=== PATIENT | female | born 1975 ===

== ENCOUNTER 2019-11-01 12:35 | Inpatient (IN) | payer SELFPAY ==
[2019-11-01] MEDS ORDERED: Fentanyl 100 MCG/2 ML VIAL ONE (12:44)
[2019-11-01 12:59] LABS: #Basophils 0.1 thou/uL (0.0-0.2); #Eosinphils 0.1 thou/uL (0.0-0.7); #Lymphocytes 1.2 thou/uL (1.20-3.40); #Monocytes 0.3 thou/uL (0.11-0.59); #Neutrophils 6.2 thou/uL (1.40-6.50); %Basophils 0.7 % (0.0-1.0); %Eosinophils 1.4 % (0.0-10.0); %Lymphocytes 15.5 % (21.0-51.0); %Monocytes 3.7 % (0.0-10.0); %Neutrophils 78.7 % (42.0-75.0); Mean Corpuscular HGB CONC 32.6 g/dL (32.0-36.0); Mean Corpuscular Hemoglobin 31.4 pg (27.0-31.0); Mean Corpuscular Volume 96.2 fL (78.0-98.0); Mean Platelet Volume 7.1 fL (7.4-10.4); Platelet Count 225 thou/uL (130-400); RBC Distribution Width 11.3 % (11.5-14.5); Red Blood Cell (RBC) Count 4.15 mill/uL (4.20-5.40); White Blood Cell (WBC) Count 7.9 thou/uL (4.8-10.8)
[2019-11-01] MEDS ORDERED: Fentanyl 20 mcg/ml (100 ml CADD) IV PRN (12:59)
[2019-11-01] MEDS ORDERED: Magnesium 2 GM/50 ML BAG (IN WATER) ONE (13:01)
[2019-11-01 13:02] LABS: Actual Bicarbonate (HCO3a) 24.7 mEq/L (22-28); Analyzer IN Cardio ER; Base Excess (BEa) -0.1 mEq/L (-2.0 to +3.0); CO2 Tension 41.1 mmHg (35.0-45.0); Calcium, Ionized (arterial) 1.15 mmol/L (1.12-1.30); Carboxyhemoglobin (COHb) 0.4 gm% (0.0-3.0)
[2019-11-01 13:05] LABS: ALV-art Gradient -32.375 (0-20); Puncture Site RRA
[2019-11-01 13:05] LABS: PTT 24.9 sec (22.9-36.1); Prothrombin Time 13.2 sec (12.0-14.7)
--- NOTE | 2019-11-01 13:10 | RAD ---
EXAM: Single view of the chest HISTORY: Slumped over and unarousable. CPR performed. COMPARISON: None FINDINGS: Single view of the chest shows a normal sized cardiomediastinal silhouette. An endotrachea l tube is seen with its tip between the clavicles. An NG tube is seen with its tip in the stomach. There is no evidence of consolidation, mass, or pleural effusion. The bones are unremarkable IMPRESSION: No evidence of acute cardiopulmonary disease
[2019-11-01] MEDS ORDERED: Magnesium 2 GM/50 ML 2 GM in Premix Bag 1 BAG IVPB SCH (13:15)
[2019-11-01 13:26] LABS: ALT (SGPT) 35 U/L (8-55); AST (SGOT) 25 U/L (5-34); Albumin 4.3 g/dL (3.5-5.0); Alkaline Phosphatase 84 U/L (40-110); Anion Gap 12 mmol/L (10-20); BUN (Urea Nitrogen) 20 mg/dL (7.0-18.7); Bilirubin, Total 0.6 mg/dL (0.2-1.2); Calc. Creatinine Clearance 0 mL/min (70-130); Calcium 8.9 mg/dL (7.8-10.44); Carbon Dioxide 27 mmol/L (22-29); Chloride 104 mmol/L (98-107); Estimated GFR-MDRD 42; Globulin 2.9 g/dL (2.4-3.5); Glucose 228 mg/dL (70-105); Magnesium 2.2 mg/dL (1.6-2.6); Potassium 4.7 mmol/L (3.5-5.1); Protein, Total 7.2 g/dL (6.0-8.3); Sodium 138 mmol/L (136-145)
[2019-11-01 13:32] LABS: Bacteria/HPF 1+ HPF (None Seen); Bilirubin Negative (Negative); Blood, Urine Trace (Negative); Clarity Extra Turbid (Clear); Glucose, Urine (Dipstick) 100 mg/dL (Negative); Ketone, Urine Negative (Negative); Leukocyte 250 Leu/uL (Negative); Nitrite Negative (Negative); Protein, Urine (Dipstick) 300 mg/dL (Neg-Trace); Specific Gravity, Urine 1.022 (1.002-1.036); Urobilinogen Normal mg/dL (Less than 2); WBC/HPF Greater than 50 HPF (0-3); pH, Urine 6.5 (5.0-9.0)
[2019-11-01 13:35] LABS: BHCG - Serum Negative (NEGATIVE); Pregs Control Background? CLEAR/WHITE (CLR/WHITE); Pregs Control Bar Appear? YES (CONTROL BAR)
[2019-11-01 13:42] LABS: Amphetamine Detected (NotDetected); Barbiturates Screen Not Detected (NotDetected); Benzodiazepine Screen Not Detected (NotDetected); Cocaine Metabolite Screen Not Detected (NotDetected); Medtox Control Line Valid? VALID (VALID); Medtox Reader # READER 1; Methadone Not Detected (NotDetected); Methamphetamine Detected (NotDetected); Opiate Screen Not Detected (NotDetected); Oxycodone Screen Not Detected (NotDetected); Phencyclidine (PCP) Not Detected (NotDetected); THC/Cannabinoid Screen Detected (NotDetected); Tricyclic Screen Not Detected (NotDetected)
[2019-11-01 13:49] LABS: Acetaminophen Less than 6.0 mcg/mL (10.0-30.0); Alcohol Less than 10 mg/dL (Less than 10); Salicylate Less than 8.0 mg/dL (15.0-30.0)
--- NOTE | 2019-11-01 13:50 | CT ---
CT CERVICAL SPINE WITH CORONAL AND SAGITTAL REFORMATIONS AND NO IV CONTRAST: HISTORY: Altered mental status, neck pain FINDINGS: Degenerative changes are present, most prominent at C5-6 level. There is loss of cervical lordosis with straightening of the cervical spine. No fracture, subluxation or facet malalignment is identified. There is bullous change in the right lung apex Endotracheal and nasogastric tubes are present. IMPRESSION: No CT evidence for fracture or traumatic subluxation.
--- NOTE | 2019-11-01 14:02 | CT ---
CT arteriogram chest with IV contrast and 3-D imaging HISTORY: Syncope. FINDINGS: There is good contrast opacification pulmonary arteries and thoracic aorta with normal bran ariane of the great vessels at the aortic arch. No pleural fluid, pneumothorax, or mediastinal adenopathy. Mild atelectasis at the dependent portion of each lung. Endotracheal catheter and nasogastric tube are in good CT position. Intraosseous needle at the left h umeral head. IMPRESSION : No acute abnormalities are demonstrated.
[2019-11-01] MEDS ORDERED: Iopamidol-370 76% 500 ML 1 ML ONE (14:03)
--- NOTE | 2019-11-01 14:03 | CT ---
CT HEAD WITHOUT CONTRAST: 11/01/19 INDICATIONS: Mental status change. FINDINGS: The ventricles have normal size and position. There is no evidence of intracranial hemorrhage or mass . There is no edema or infarct. Paranasal sinuses and mastoids are clear. IMPRESSION: Unremarkable head CT. POS: AH
[2019-11-01] MEDS ORDERED: cefTRIAXone\\ROCEPHIN 2 GM VIAL ONE (14:09)
--- NOTE | 2019-11-01 14:20 | CT ---
CT ABDOMEN AND PELVIS WITH IV CONTRAST: 11/01/19 INDICATIONS: Cardiac arrest. Liver, spleen, and pancreas unremarkable. An NG tube passes through the EG junction has tip in the re gion of the gastric body. The stomach is distended with gas and ingested material. Adrenal glands nor mal. Kidneys unremarkable. Small bowel loops normal caliber. The colon is unremarkable. Appendix appears normal. Aorta appears n ormal. Images through the pelvis show a catheter coiled in the urinary bladder. Uterus and adnexa mario ear unremarkable. No free fluid. Osseous structures unremarkable. IMPRESSION: No evidence of acute process. POS: AH
[2019-11-01] MEDS ORDERED: Cefepime 2 GM VIAL ONE (14:22)
[2019-11-01] MEDS ORDERED: Vancomycin 1.5 GRAM/300 ML BAG 1.5 GM in Premix Bag 1 BAG IVPB SCH (14:45)
[2019-11-01] MEDS ORDERED: Sodium Chloride 0.9% 1,000 ML IV SCH (14:45)
[2019-11-01] MEDS ORDERED: Electrolyte Replacement Protoc 1 EACH EACH IVPB PRN (15:26)
[2019-11-01] MEDS ORDERED: Bisacodyl 10 MG SUPP PR PRN (15:26)
[2019-11-01] MEDS ORDERED: Acetaminophen 650 MG Suppository PR PRN (15:26)
[2019-11-01] MEDS ORDERED: hydrALAZINE 20 MG/ML VIAL SLOW IVP PRN (15:26)
[2019-11-01] MEDS ORDERED: Labetalol HCl 100 MG/20 ML VIAL SLOW IVP PRN (15:26)
[2019-11-01] MEDS ORDERED: Acetaminophen 325 MG TAB PO PRN (15:26)
[2019-11-01] MEDS ORDERED: Metoclopramide HCl 10 MG/2 ML VIAL IVP PRN (15:26)
[2019-11-01] MEDS ORDERED: Ondansetron PF 4 MG/2 ML Vial IVP PRN (15:26)
[2019-11-01] MEDS ORDERED: Ventilator Sedation Protocol 1 EACH FS SCH (15:26)
[2019-11-01] MEDS ORDERED: Morphine 2 MG/ML VIAL SLOW IVP PRN ×2 (15:46→16:22)
[2019-11-01] MEDS ORDERED: Propofol BOLUS 1,000 MG/100 ML VIAL IV PRN ×2 (15:46→16:22)
[2019-11-01] MEDS ORDERED: DISCONTINUE PREVIOUS NARCOTIC PAIN MEDICATIONS AND BENZODIAZEPINES FS SCH ×2 (15:46→16:22)
[2019-11-01] MEDS ORDERED: Lorazepam 2 MG/ML VIAL SLOW IVP PRN ×2 (15:46→16:22)
[2019-11-01] MEDS ORDERED: Fentanyl BOLUS 250 ML IVPB PRN ×2 (15:46→16:22)
[2019-11-01] MEDS ORDERED: fentaNYL Citrate/PF 2,000 MCG in Sodium Chloride 0.9% 60 ML IV SCH ×2 (15:46→16:22)
--- NOTE | 2019-11-01 16:04 | HP ---
PRIMARY CARE PHYSICIAN: [facility] Call admission. REASON FOR ADMISSION: Status post cardiac arrest. HISTORY OF PRESENT ILLNESS: A 43-year-old female, who was brought to emergency room for unresponsiveness. The patient was intubated when she arrived to ER. As per report, the patient was eating her breakfast and all of sudden she passed out. The patient's family member reported that she has history of drug abuse. In the emergency room, the patient had a full trauma workup done, which was unremarkable. CT abdomen and pelvis is negative. Chest x-ray normal. Cervical spine CT scan negative for any fracture or dislocation. CT angiography negative for PE and CT brain is also normal. Routine blood tests showed normal CBC. Her D-dimer was elevated, but CT angio was negative for PE. Her creatinine was slightly elevated to 1.35. test negative. Cardiac enzyme negative. Urinalysis suggestive of UTI and that is why the patient was given antibiotic therapy. Her COVID-19 test came back negative. Her urine tox screen is positive for amphetamine and methamphetamine. The patient is being admitted to ICU for close monitoring. PAST MEDICAL HISTORY: As per family report, the patient does not have any chronic medical illness. PAST SURGICAL HISTORY: As per the patient's family member, the patient does not have any surgical history. PAST PSYCHIATRIC HISTORY: Unknown. SOCIAL HISTORY: The patient has a history of drug abuse. MEDICATIONS: Unable to obtain any medication history. ALLERGIES: NO KNOWN DRUG ALLERGY. REVIEW OF SYSTEMS: All review of systems tried to review with the patient, but unable to review at this point due to intubated status. EMERGENCY ROOM COURSE: The patient is given vancomycin, cefepime, fentanyl, magnesium sulfate, IV fluid. PHYSICAL EXAMINATION: VITAL SIGNS: Currently, blood pressure 115/75, pulse 68, respiratory rate 14 on ventilator, temperature 93.6, saturation 100% on ventilator. Weight 66 kg. GENERAL: The patient is intubated, in no acute distress. HEAD: Normocephalic and atraumatic. EYES: Pupils are round and reactive to light. ENT: Endotracheal tube in place. NECK: Supple. No JVD. No meningeal signs of irritation. LUNGS: Clear to auscultation without any rhonchi or rales. CARDIAC: S1 and S2 regular. No murmur. No gallop. No rub. ABDOMEN: Soft. Bowel sounds present. Nontender. Nondistended. No organomegaly. No mass. EXTREMITIES: No edema. Good distal pulsation. SKIN: No skin rash. HEMATOLOGIC: No lymphadenopathy. NEUROLOGIC: Unable to assess at this point. ADDITIONAL INFORMATION: The patient had short period of CPR done at her home by her family member. SIGNIFICANT LABORATORY DATA: CBC; WBC 7.9, hemoglobin 13.0, platelet 225. INR 1.0. D-dimer 1.38. ABG; pH 7.40, CO2 of 41, O2 of 694, saturation 99.6. BMP; sodium 138, potassium 4.7, chloride 104, BUN 20, creatinine 1.35, glucose 228, calcium 8.9. LFT; AST 25, ALT 35, alkaline phosphatase 84, albumin 4.3. BNP 13.3. Troponin-I 0.011. test negative. Urinalysis suggestive of UTI. Urine drug screen positive for amphetamine, methamphetamine, and cannabinoids. COVID-19 test negative. IMAGING STUDIES: CT abdomen and pelvis negative for any acute intraabdominal process. Chest x-ray negative for any acute cardiopulmonary process. CT cervical spine negative for any fracture or dislocation. CT brain negative for any acute intracranial process. CT angiography negative for any PE. ASSESSMENT AND PLAN: 1. Status post cardiac arrest and return of circulation. 2. Acute respiratory failure with hypoxia; polysubstance abuse with methamphetamine, amphetamine, and cannabinoid abuse. 3. Urinary tract infection. PLAN: 1. ICU admission. Echocardiography. Serial cardiac enzyme. LP done in the emergency room, we will follow up on results. Continue Rocephin 2 g IV daily, Pepcid 20 mg IV b.i.d. for GI prophylaxis, Lovenox 40 mg subcu daily for DVT prophylaxis. Ventilation as per Pulmonology. We will keep her n.p.o. Most likely, the patient's current respiratory failure related with drug abuse. We are expecting her extubation soon, continue IV fluid, and we will check hemoglobin A1c tomorrow. 2. Deep venous thrombosis prophylaxis, Lovenox 40 mg subcu daily. 3. Gastrointestinal prophylaxis, Pepcid 20 mg IV b.i.d. CODE STATUS: The patient is full code. DISPOSITION PLAN: Based on clinical course. Job ID: [id number]
[2019-11-01] MEDS: Sodium Chloride 0.9% 1,000 ML IV SCH (16:15)
[2019-11-01 16:22] LABS: Color Of CSF Supernatant COLORLESS (Colorless); Tube # 1; Unspun CSF Color COLORLESS (Colorless)
[2019-11-01] MEDS ORDERED: Propofol 1,000 MG/100 ML VIAL IV PRN (16:22)
[2019-11-01 16:32] LABS: CSF Source CSF; Clarity Clear (Clear); Tube # 4
[2019-11-01 16:35] LABS: CSF, Glucose 83 mg/dl (40-70); CSF, Protein 41 mg/dL (15-40)
[2019-11-01 16:37] LABS: Troponin I 0.034 ng/mL (< 0.028)
[2019-11-01 16:40] VITALS: BMI 25.1
--- NOTE | 2019-11-01 17:40 | CON ---
DATE OF CONSULTATION: HISTORY OF PRESENT ILLNESS: A 43-year-old female was found down by paramedics. She was given rocuronium 100, ketamine 100, and fentanyl, intubated and transferred to [facility] where she had a CT abdomen and pelvis, chest x-ray, CT thorax, cervical spine, and brain. No specific findings were seen. She is now in the ICU intubated in the vent. She has not been sedated, though she does respond. We are unable to get any additional information at this stage. Apparently, she did undergo what appears to be a spinal tap. I reviewed her lab and toxicology screening, which showed amphetamine detected, methamphetamine detected, and cannabinoids. Alcohol level is normal. Serology for rapid coronavirus was negative. In the ICU, she appears to be responding somewhat. PAST MEDICAL HISTORY: Previous history of apparently substance abuse as per the boyfriend. PAST SURGICAL HISTORY: Surgeries apparently none. MEDICATIONS: Unknown at this time. PHYSICAL EXAMINATION: VITAL SIGNS: On the vent, sats 100%, pulse 80, blood pressure 120/80, respirations are shallow at 10. CHEST: No wheezing. No crackles. CARDIAC: Normal S1 and S2. ABDOMEN: Soft. LABORATORY DATA: Otherwise, labs that were performed. White count 10,000. PO2 of 694, pCO2 of 40%. Creatinine 1.37. Urine shows wbc's greater than 50. IMPRESSION: 1. History of drug abuse, poly. 2. Respiratory failure. 3. Encephalopathy,. 4. Mild azotemia. PLAN: Avoid sedation. We will hopefully wean and extubate when she is more awake and stable. Serial exam. This is a 45-minute critical care time. Job ID: [id number]
[2019-11-01] MEDS: Propofol 1,000 MG/100 ML VIAL IV PRN (17:53)
[2019-11-01 19:15] LABS: Troponin I 0.034 ng/mL (< 0.028)
[2019-11-01] MEDS: Famotidine/PF 20 mg/2ml Vial SLOW IVP SCH (20:53)
[2019-11-02] MEDS: Sodium Chloride 0.9% 1,000 ML IV SCH ×3 (02:19→19:44)
[2019-11-02] MEDS: Propofol 1,000 MG/100 ML VIAL IV PRN (03:13)
[2019-11-02 03:39] LABS: Hemoglobin 12.2 g/dL (12.0-16.0); Mean Corpuscular HGB CONC 32.4 g/dL (32.0-36.0); Mean Corpuscular Hemoglobin 30.8 pg (27.0-31.0); Mean Corpuscular Volume 94.9 fL (78.0-98.0); Mean Platelet Volume 7.6 fL (7.4-10.4); Platelet Count 199 thou/uL (130-400); RBC Distribution Width 11.6 % (11.5-14.5); Red Blood Cell (RBC) Count 3.98 mill/uL (4.20-5.40); White Blood Cell (WBC) Count 12.4 thou/uL (4.8-10.8)
[2019-11-02 03:40] LABS: Band 8 % (5-11); Eosinophils 1 % (0-10); Lymphocytes 12 % (21-51); MDiff Complete? YES; Monocytes 14 % (0-10); Neutrophil 65 % (42-75)
[2019-11-02 03:55] LABS: Anion Gap 13 mmol/L (10-20); BUN (Urea Nitrogen) 15 mg/dL (7.0-18.7); Calc. Creatinine Clearance 94 mL/min (70-130); Calcium 8.2 mg/dL (7.8-10.44); Carbon Dioxide 21 mmol/L (22-29); Chloride 111 mmol/L (98-107); Estimated GFR-MDRD 81; Glucose 84 mg/dL (70-105); Potassium 5.2 mmol/L (3.5-5.1); Sodium 140 mmol/L (136-145)
[2019-11-02 03:58] LABS: Hemoglobin A1c 5.1 % (4.0-6.0)
[2019-11-02] MEDS ORDERED: DOPamine 400 MG/D5W 250 ML 250 ML ONE (06:48)
[2019-11-02 07:29] VITALS: BP 98/51
[2019-11-02 07:34] LABS: Actual Bicarbonate (HCO3a) 23.9 mEq/L (22-28); CO2 Tension 50.5 mmHg (35.0-45.0); Calcium, Ionized (arterial) 1.22 mmol/L (1.12-1.30); Carboxyhemoglobin (COHb) 0.3 gm% (0.0-3.0); Hemoglobin (Hb) 11.9 g/dL (12.0-16.0); O2 Tension (PaO2), arterial 99.8 mmHg (80.0-100.0); Potassium - ABG Lab 4.05 mmol/L (3.70-5.30); pH, Arterial 7.29 (7.35-7.45)
[2019-11-02 07:35] LABS: ALV-art Gradient 50.975 (0-20); Puncture Site RRA
--- NOTE | 2019-11-02 08:03 | RAD ---
XR Chest 1 View Portable HISTORY: Respiratory failure COMPARISON: Previous day FINDINGS: The heart size is normal. Endotracheal and nasogastric tubes remain in place. The lungs are well expanded without focal areas of consolidation, pneumothorax or pleural effusions. IMPRESSION: No radiographic evidence of acute cardiopulmonary process.
[2019-11-02] MEDS ORDERED: DC Sedation Protocol FS ONE (09:14)
--- NOTE | 2019-11-02 09:31 | PRG ---
DATE OF SERVICE: 11/02/2019 SUBJECTIVE: This morning, she is sedated on the vent. Though, she is more responsive. OBJECTIVE: VITAL SIGNS: Stable. Temperature 98.4, pulse 77, blood pressure 98/51, on low-dose dopamine, saturations are 100% on 30%. CHEST: No wheezing. No crackles. CARDIAC: Normal S1, S2. No gallops. ABDOMEN: No masses. LABORATORY DATA: She sat up in bed, on the sedation, PO2 of 99, pCO2 of 50, pH 7.29, on 30%. Lytes are normal. Potassium 5.2. ASSESSMENT: Status post presumed overdose. Encephalopathy, spinal tap that was negative, drug abuse. PLAN: Sedation will be withheld. We will try and extubate. Supportive care, eventually counseling. One-half hour of critical care time. Job ID: [id number]
[2019-11-02] MEDS: Enoxaparin Sodium 40 MG/0.4 ML SYRINGE SC SCH (12:03)
[2019-11-02] MEDS: Famotidine/PF 20 mg/2ml Vial SLOW IVP SCH ×2 (12:03→19:47)
[2019-11-02] MEDS ORDERED: DOPamine 400 MG/D5W 250 ML 250 ML IVPB SCH (13:15)
[2019-11-02] MEDS ORDERED: cefTRIAXone\\ROCEPHIN 2 GM in Sodium Chloride 0.9% 100 ML IVPB SCH (14:00)
--- NOTE | 2019-11-02 16:47 | PDOC.HOSPP ---
- Subjective Encounter Date: 11/02/19 Subjective: More awake. Denies complaints. - Objective Vital Signs & Weight: Vital Signs (12 hours) Temp Pulse Resp BP Pulse Ox 11/02/19 16:00 97.9 F 11/02/19 12:00 97.9 F 11/02/19 09:18 82 11 L 97 11/02/19 08:00 97.3 F L 14 11/02/19 07:25 77 98/51 L 11/02/19 06:00 10 L Weight Weight 148 lb 5.938 oz Most Recent Monitor Data Heart Rate from ECG 60 NIBP 118/69 NIBP BP-Mean 85 Respiration from ECG 19 SpO2 99 I&O: 11/01/19 11/02/19 11/03/19 06:59 06:59 06:59 Intake Total 1523.2 41 Output Total 1341 360 Balance 182.2 -319 Result Diagrams: 11/02/19 03:17 11/02/19 03:17 Hospitalist ROS - Medication Medications: Active Medications Generic Name Dose Route Start Last Admin Trade Name Fuad PRN Reason Stop Dose Admin Enoxaparin Sodium 40 mg 11/02/19 09:00 11/02/19 12:03 Lovenox SC 40 mg 0900 DESHAUN Administration Famotidine 20 mg 11/01/19 21:00 11/02/19 12:03 Pepcid SLOW IVP 20 mg Q12HR DESHAUN Administration Ceftriaxone Sodium 2 gm/ 100 mls @ 200 mls/hr 11/02/19 14:00 11/02/19 13:35 Sodium Chloride IVPB 100 mls 1400 DESHAUN Administration Sodium Chloride 1,000 mls @ 100 mls/hr 11/01/19 15:26 11/02/19 08:29 Normal Saline 0.9% IV 1,000 mls .Q10H DESHAUN Administration - Exam General Appearance: NAD, awake alert Heart: RRR, no murmur, no gallops, no rubs, normal peripheral pulses Respiratory: CTAB, no wheezes, no rales, no ronchi, normal chest expansion, no tachypnea, normal percussion Gastrointestinal: soft, non-tender, non-distended, normal bowel sounds, no palpable masses, no hepatomegaly, no splenomegaly, no bruit Extremities: no cyanosis, no clubbing, no edema Skin: normal turgor Neurological: no focal deficits Musculoskeletal - other findings: Somnolent, but awakens and appropriate. Hosp A/P (1) Overdose Code(s): T50.901A - POISONING BY UNSP DRUG/MEDS/BIOL SUBST, ACCIDENTAL, INIT Status: Acute (2) Acute respiratory failure with hypoxia Code(s): J96.01 - ACUTE RESPIRATORY FAILURE WITH HYPOXIA Status: Acute - Plan Resp failure: Extubated. Doing well. Overdose: Still needs a little time to metablolize away the drugs. Bradycardia: Tends to keyonna down when using a straw. Presumably due to vagal response. Avoid straws. Has required a little dopamine overnight. Off now. Continue to monitor.
[2019-11-03 04:09] LABS: Hemoglobin 12.2 g/dL (12.0-16.0); MDiff Complete? YES; Mean Corpuscular HGB CONC 30.8 g/dL (32.0-36.0); Mean Corpuscular Hemoglobin 29.9 pg (27.0-31.0); Mean Platelet Volume 8.2 fL (7.4-10.4); Platelet Count 178 thou/uL (130-400); RBC Distribution Width 11.6 % (11.5-14.5); Red Blood Cell (RBC) Count 4.09 mill/uL (4.20-5.40); White Blood Cell (WBC) Count 8.2 thou/uL (4.8-10.8)
[2019-11-03 04:10] LABS: Band 2 % (5-11); Lymphocytes 18 % (21-51); Monocytes 2 % (0-10); Neutrophil 78 % (42-75); Platelet Morphology Comment Appears Adequate; RBC Morphology Normal
[2019-11-03 04:34] LABS: Anion Gap 13 mmol/L (10-20); BUN (Urea Nitrogen) 15 mg/dL (7.0-18.7); Calc. Creatinine Clearance 111 mL/min (70-130); Calcium 8.5 mg/dL (7.8-10.44); Carbon Dioxide 20 mmol/L (22-29); Chloride 107 mmol/L (98-107); Estimated GFR-MDRD Greater than 90; Glucose 79 mg/dL (70-105); Potassium 3.9 mmol/L (3.5-5.1); Sodium 136 mmol/L (136-145)
[2019-11-03] MEDS: Sodium Chloride 0.9% 1,000 ML IV SCH (05:31)
--- NOTE | 2019-11-03 07:51 | RAD ---
EXAM: Single view of the chest HISTORY: Respiratory failure. CCU patient. COMPARISON: 11/02/2019 FINDINGS: Single view of the chest shows a normal sized cardiomediastinal silhouette. The NG tube an d endotracheal tube have been removed. There is no evidence of consolidation, mass, or pleural effusion. The bones are unremarkable IMPRESSION: No evidence of acute cardiopulmonary disease
[2019-11-03] MEDS: Enoxaparin Sodium 40 MG/0.4 ML SYRINGE SC SCH (08:15)
[2019-11-03] MEDS: Famotidine/PF 20 mg/2ml Vial SLOW IVP SCH (08:15)
[2019-11-03 09:00] VITALS: TEMP 97.9
--- NOTE | 2019-11-03 09:54 | PRG ---
DATE OF SERVICE: 11/03/2019 SUBJECTIVE: Neida More is a 43-year-old female, awake, alert, and responsive. She wants to go home this morning. OBJECTIVE: VITAL SIGNS: Saturations 100% on room air, respiratory rate 12, pulse 64, blood pressure 134/76. CHEST: No wheezing. No crackles. CARDIAC: Normal S1 and S2. LABORATORY DATA: Unremarkable. X-ray, questionable right-sided infiltrate. Cultures negative. ASSESSMENT AND PLAN: Respiratory failure secondary to presumed substance abuse and methamphetamine. Questionable right-sided infiltrate. The patient's cultures are negative. Spinal tap was negative. She would like to go home. She could probably be switched over to oral antibiotic for 5 days. Disposition as per primary care physician. Job ID: [id number]
--- NOTE | 2019-11-04 04:08 | DIS ---
DATE OF ADMISSION: 11/01/2019 DATE OF DISCHARGE: 11/03/2019 DISCHARGE DIAGNOSES: 1. Acute hypoxic respiratory failure. 2. Polysubstance overdose. 3. Acute metabolic encephalopathy. HISTORY OF PRESENT ILLNESS: This patient is a 43-year-old female, who was apparently found down. She was subsequently brought to the hospital, where she had CT scans of her chest, abdomen, pelvis, brain, C-spine, along with chest x-rays. In the Emergency Department, she also had a lumbar puncture and potential evidence of a urinary tract infection. Her drug screen was positive for amphetamine/methamphetamine along with cannabis. The patient had received some sedation en route as well for her intubation. HOSPITAL COURSE: The patient was placed in the ICU, where she remained on the ventilator with IV fluids. When the patient was able to clear some the drugs, she was able to come more awake and ultimately to be successfully extubated. The patient then reported that she knew she had the methamphetamine in her system, but reports that she had taken an oxycodone and that is what made her start acting strangely although her oxycodone was negative on her drug screen. The patient was noted to have significant episodes of bradycardia primarily when using a straw and it was felt that she might be having some exaggerated vagal response. Therefore, the plan was to continue to monitor the patient another day as she has started to increase her mobility. However, the patient decided to leave against medical advice after she googled it and realized that was not illegal. Therefore, the patient will be discharged against medical advice. Job ID: [id number]
== END 2019-11-03 13:50 | disposition left against medical advice (07) | DRG 917 ==
LOC: ERS 12:35 → CCU 15:51
PROVIDERS: ADMIT Internal Medicine; ATTEND Internal Medicine
PROC: 5A1945Z Respiratory Ventilation, 24-96 Consecutive Hours (ICD-10-PCS; principal; 2019-11-01)
PROC: 0BH17EZ Insertion of Endotracheal Airway into Trachea, Via Natural or Artificial Opening (ICD-10-PCS; 2019-11-01)
PROC: 009U3ZX Drainage of Spinal Canal, Percutaneous Approach, Diagnostic (ICD-10-PCS; 2019-11-01)
DX: T43.621A Poisoning by amphetamines, accidental (unintentional), initial encounter (principal); J96.01 Acute respiratory failure with hypoxia; I46.9 Cardiac arrest, cause unspecified; R40.2312 Coma scale, best motor response, none, at arrival to emergency department; R40.2112 Coma scale, eyes open, never, at arrival to emergency department; R40.2212 Coma scale, best verbal response, none, at arrival to emergency department; G93.41 Metabolic encephalopathy; N39.0 Urinary tract infection, site not specified; T40.7X1A Poisoning by cannabis (derivatives), accidental (unintentional), initial encounter; Z20.828 Contact with and (suspected) exposure to other viral communicable diseases
CPT/HCPCS: 31500; 36415; 51702; 62270; 70450; 71045; 71275; 72125; 74177; 80048; 80053; 80306; 80307; 81003; 81015; 82805; 82945; 83036; 83735; 83880; 84157; 84484; 84703; 85007; 85025; 85027; 85379; 85610; 85730; 86140; 87070; 87205; 89051; 93005; 93010; 93306; 94002; 94003; 96365; 96366; 96367; 96368; 96376; 99292; J0692; J0696; J1265; J1650; J2060; J2704; J3010; J3370; J3475; J3490; Q9967; S0028; U0002